=== PATIENT | female | born 1990 | race Caucasian/White ===

== ENCOUNTER 2019-03-27 00:29 | Observation (INO) ==
[2019-03-27] MEDS ORDERED: Acetaminophen 325 MG TABLET PO ONE (01:24)
--- NOTE | 2019-03-27 01:38 | Emergency Department Note ---
Disposition Clinical Impression: IV drug abuse Septic pulmonary embolism Qualifiers: Chronicity: acute Acute cor pulmonale presence: without acute cor pulmonale Qualified Code(s): I26.90 - Septic pulmonary embolism without acute cor pulmonale Disposition: Admitted As Inpatient Condition: Fair Referrals: NONE,PCP [Primary Care Provider] - Forms: ED Satisfaction Letter, Work/School Release Time of Disposition: 02:30 SOB HPI - General Chief Complaint: ED General Medical Stated Complaint: "Feel short of breath", being treated for UTI Time Seen by Provider: 03/27/19 00:56 Source: patient Mode of arrival: private vehicle Limitations: no limitations Nursing Notes Reviewed: Yes Vital Signs Reviewed: Yes - History of Present Illness Patient presents to the ED complaining of shortness of breath. Symptoms going on for 3-4 days. She has also been running a fever for 3-4 days. She denies any cough. She does report rhinorrhea. No sneezing or nasal congestion. She has had a sore throat. No abdominal pain, nausea, vomiting or diarrhea. She has been constipated and does not remember the last time she had a bowel movement. States she went to urgent care 2 days ago for fever, chest pain and tingling with urination. She states she was diagnosed with a "really bad" UTI. She had a shot of antibiotics at urgent care and then prescribed oral antibiotics. She took one dose of her oral antibiotic, cefdinir, yesterday. She states the tingling with urination she had is now gone. Her chest discomfort is worse with coughing and taking a deep breath. She also reports some swelling of her right hand. No rash or skin lesions. She has been taking Tylenol for her fever and the prescribed antibiotic. 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 She denies any other drug use. Denies any alcohol. She is a smoker. No recent travel or sick contacts. No chronic medical problems a routine medications. She does not have a primary care doctor. States she has been checking her oxygen saturation at home because a family member had a pulse ox meter and it has been in the high 90s. - Related Data Allergies Allergy/AdvReac Type Severity Reaction Status Date / Time Sulfa (Sulfonamide Allergy Hives Verified 03/27/19 00:59 Antibiotics) sulfamethoxazole Allergy Hives Verified 03/27/19 00:59 [From Bactrim] trimethoprim [From Bactrim] Allergy Hives Verified 03/27/19 00:59 Constitutional: Reports: fever. Denies: chills, weakness, weight change Eyes: Denies: eye pain, eye discharge, vision change ENT ED: Reports: throat pain. Denies: ear pain, dental pain, hearing loss, epis taxis, congestion, dysphagia Cardiovascular: Reports: chest pain. Denies: palpitations, dyspnea on exertion, edema, syncope Respiratory: Reports: dyspnea. Denies: wheezes, hemoptysis, stridor Gastrointestinal: Reports: constipation. Denies: abdominal pain, nausea, vomiting, diarrhea, hematemesis, melena, hematochezia Genitourinary: Denies: dysuria, frequency, hematuria, discharge Musculoskeletal: Denies: back pain, neck pain, arthralgia, myalgia Integumentary: Denies: rash, abrasion, lesions Neurological: Denies: headache, weakness, numbness, paresthesias, confusion, abnormal gait, vertigo Psychiatric: Denies: anxiety, depression, suicidal thoughts, homicidal thoughts, auditory hallucinations, visual hallucinations Endocrine: Denies: fatigue Hematological/Lymphatic: Denies: easy bleeding, easy bruising Allergic/Immunologic: Denies: facial swelling, urticaria Past Medical History - Past Medical History Medical history: Reports: no medical history - Social History Smoking Status: Current every day smoker Smokeless Tobacco Status: No Alcohol use: Reports: none Drug use: Reports: IV Drug Use Physical Exam - General Limitations: no limitations General appearance: alert, in no apparent distress - Head Head exam: atraumatic, normocephalic, normal inspection - Eye Eye exam: Present: normal appearance, PERRL, EOMI - ENT ENT exam: normal exam, normal oropharynx, mucous membranes moist - Neck Neck exam: Present: normal inspection, full ROM, trachea midline - Chest Chest inspection: Present: normal inspection, symmetric chest wall rise - Respiratory Respiratory exam: Present: normal lung sounds bilaterally - Cardiovascular Cardiovascular exam: Present: regular rate, normal rhythm, normal heart sounds - Abdominal Exam Abdominal exam: Present: soft, Non-Tender. Absent: tenderness, distention, guarding, rebound, rigidity - Extremities Exam Extremities exam: Present: normal inspection, full ROM. Absent: tenderness, pedal edema - Back Exam Back exam: Present: normal inspection, full ROM. Absent: tenderness - Neurological Exam Neurological exam: Present: alert, oriented X3 - Psychiatric Psychiatric exam: Present: normal affect, normal mood - Skin Skin exam: Present: warm, dry, intact, normal color Course Course Narrative: Presents to the ED with 4 days of shortness of breath, pleuritic chest pain, fever and sore throat. She is on antibiotics the past 2 days for UTI without i mprovement raise a concern for an alternative source of infection. Given her chest discomfort and shortness of breath and drug abuse concern is for pulmonary septic emboli versus endocarditis other pulmonary process. We will give Tylenol for her fever and obtain chest x-ray and lab work. - Reevaluation(s) Reevaluation #1: Laboratory studies show a mild leukocytosis with left shift and mild anemia. BMP is unremarkable. Lactic acid is normal. Urinalysis shows some trace leukocyte esterase as well as red blood cells and white blood cells but is also contaminated. Urine drug screen is positive for opiates, oxycodone, benzodiazepines and amphetamines. Chest x-ray shows multifocal opacities with cavitation concerning for septic emboli disease which is consistent with her IV drug abuse. Discussed with patient all test results and need for admission for IV antibiotics and she is in agreement. I spoke to the hospitalist on-call, Dr. Ma who agreed to accept the patient. Time: 02:31 Vital Signs Temperature 100.7 F H 03/27/19 00:32 Pulse Rate 116 03/27/19 00:32 Respiratory Rate 18 03/27/19 00:32 Blood Pressure 130/63 03/27/19 00:32 O2 Sat by Pulse Oximetry 98 03/27/19 00:32 Temperature 100.7 F H 03/27/19 00:32 Pulse Rate 116 03/27/19 00:32 Respiratory Rate 18 03/27/19 00:32 Blood Pressure 130/63 03/27/19 00:32 O2 Sat by Pulse Oximetry 98 03/27/19 00:32 Oxygen Delivery Oxygen Delivery Room Air Shortness of Breath/Dyspnea - Medical Records Medical records reviewed: Yes I reviewed the patient's medical records. - Lab Data Lab results reviewed: Yes I reviewed the patient's lab results. Result diagrams: 03/27/19 01:44 03/27/19 01:44 Lab Results 03/27/19 03/27/19 03/27/19 Range/Units 01:27 01:27 01:44 WBC 13.2 H (4.3-11.1) K/mcL RBC 3.92 (3.82-4.97) M/mcL Hgb 9.6 L (11.5-15.4) g/dL Hct 29.4 L (35.3-44.9) % MCV 75.0 L (83.0-100.0) fL MCH 24.5 L (28.0-33.3) pg MCHC 32.7 (31.6-35.5) g/dL RDW 14.6 H (11.5-14.5) % Plt Count 185 (140-400) K/mcL MPV 11.5 (9.4-12.4) fL Immature Gran % 1.2 (0-4) % Seg Neutrophils % 75.9 % Lymphocytes % 12.8 % Monocytes % 9.3 % Eosinophils % 0.6 % Basophils % 0.2 % Neutrophils # 10.0 H (1.6-8.9) K/mcL Lymphocytes # 1.7 (0.6-4.6) K/mcL Monocytes # 1.2 (0.0-1.3) K/mcL Eosinophils # 0.1 (0.0-0.6) K/mcL Basophils # 0.0 (0.0-0.2) K/mcL Sodium (136-145) mEq/L Potassium (3.5-5.1) mEq/L Chloride (98-107) mEq/L Carbon Dioxide (23-29) mEq/L BUN (6-20) mg/dL Creatinine (0.60-1.20) mg/dL Est GFR ( Amer) (> 60) Est GFR (Non-Af Amer) (> 60) BUN/Creatinine Ratio (6-26) Glucose (70-105) mg/dL Calculated Osmolality (280-300) Lactic Acid (0.5-2.2) mmol/L Calcium (8.6-10.3) mg/dL Urine Color Yellow (Yellow) Urine Clarity Slightly Cloudy A (Clear) Urine pH 6.5 (5.0-8.0) pH Units Ur Specific [place] 1.015 (1.010-1.025) Urine Protein 30 H (Neg-Trace) mg/dL Urine Glucose (UA) Normal (Normal) mg/dL Urine Ketones Negative (Negative) mg/dL Urine Blood Moderate H (Negative) Urine Nitrite Negative (Negative) Urine Bilirubin Negative (Negative) Urine Urobilinogen >=8.0 H (Normal) mg/dL Ur Leukocyte Esterase Trace H (Negative) Urine Microscopic RBC 5-15 H (0-3) per hpf Urine Microscopic WBC 5-15 H (0-3) per hpf Ur Squamous Epith Cells Many H (None-Few) per lpf Urine Bacteria Few (None-Few) per hpf Ur Culture Indicated? YES A (NO) Urine Opiates Screen Positive H (Zpgrmt=013) ng/mL Ur Buprenorphine Scrn Negative (Cutoff=5) ng/mL Ur Oxycodone Screen Positive H (Cutoff= 100) ng/mL Ur Barbiturates Screen Negative (Xhpngi=883) ng/mL Ur Phencyclidine Scrn Negative (Cutoff=25) ng/mL Ur Amphetamines Screen Positive H (Oisfxd=2895) ng/mL U Benzodiazepines Scrn Positive H (Yqterl=222) ng/mL Urine Cocaine Screen Negative (Cutoff= 300) ng/mL U Marijuana (THC) Screen Negative (Cutoff = 50) ng/mL Ur Drug Screen Interp See Below 03/27/19 03/27/19 Range/Units 01:44 01:44 WBC (4.3-11.1) K/mcL RBC (3.82-4.97) M/mcL Hgb (11.5-15.4) g/dL Hct (35.3-44.9) % MCV (83.0-100.0) fL MCH (28.0-33.3) pg MCHC (31.6-35.5) g/dL RDW (11.5-14.5) % Plt Count (140-400) K/mcL MPV (9.4-12.4) fL Immature Gran % (0-4) % Seg Neutrophils % % Lymphocytes % % Monocytes % % Eosinophils % % Basophils % % Neutrophils # (1.6-8.9) K/mcL Lymphocytes # (0.6-4.6) K/mcL Monocytes # (0.0-1.3) K/mcL Eosinophils # (0.0-0.6) K/mcL Basophils # (0.0-0.2) K/mcL Sodium 133 L (136-145) mEq/L Potassium 3.4 L (3.5-5.1) mEq/L Chloride 99 (98-107) mEq/L Carbon Dioxide 24 (23-29) mEq/L BUN 18 (6-20) mg/dL Creatinine 0.77 (0.60-1.20) mg/dL Est GFR ( Amer) > 60 (> 60) Est GFR (Non-Af Amer) > 60 (> 60) BUN/Creatinine Ratio 23 (6-26) Glucose 116 H (70-105) mg/dL Calculated Osmolality 279 L (280-300) Lactic Acid 0.6 (0.5-2.2) mmol/L Calcium 8.2 L (8.6-10.3) mg/dL Urine Color (Yellow) Urine Clarity (Clear) Urine pH (5.0-8.0) pH Units Ur Specific [place] (1.010-1.025) Urine Protein (Neg-Trace) mg/dL Urine Glucose (UA) (Normal) mg/dL Urine Ketones (Negative) mg/dL Urine Blood (Negative) Urine Nitrite (Negative) Urine Bilirubin (Negative) Urine Urobilinogen (Normal) mg/dL Ur Leukocyte Esterase (Negative) Urine Microscopic RBC (0-3) per hpf Urine Microscopic WBC (0-3) per hpf Ur Squamous Epith Cells (None-Few) per lpf Urine Bacteria (None-Few) per hpf Ur Culture Indicated? (NO) Urine Opiates Screen (Bmmkkx=475) ng/mL Ur Buprenorphine Scrn (Cutoff=5) ng/mL Ur Oxycodone Screen (Cutoff= 100) ng/mL Ur Barbiturates Screen (Bebrif=990) ng/mL Ur Phencyclidine Scrn (Cutoff=25) ng/mL Ur Amphetamines Screen (Adhfvm=1206) ng/mL U Benzodiazepines Scrn (Mrxgsh=410) ng/mL Urine Cocaine Screen (Cutoff= 300) ng/mL U Marijuana (THC) Screen (Cutoff = 50) ng/mL Ur Drug Screen Interp - Radiology Data Radiology results reviewed: Yes I reviewed the patient's radiology results. Impressions Chest X-Ray 03/27/19 01:23 IMPRESSION: Multifocal airspace disease with cavitation, most suspicious for septic embolic disease given history of intravenous drug use. D/ / Andrew Parsons / Andrew Parsons Interpreting Provider: Andrew Parsons
[2019-03-27 02:06] LABS: Basophils % 0.2 %; Eosinophils # 0.1 K/mcL (0.0-0.6); Eosinophils % 0.6 %; Hematocrit 29.4 % (35.3-44.9); Hemoglobin 9.6 g/dL (11.5-15.4); Immature Granulocytes % 1.2 % (0-4); Lymphocytes # 1.7 K/mcL (0.6-4.6); Lymphocytes % 12.8 %; Mean Corpuscular HGB Conc 32.7 g/dL (31.6-35.5); Mean Corpuscular Hemoglobin 24.5 pg (28.0-33.3); Mean Platelet Volume 11.5 fL (9.4-12.4); Monocytes # 1.2 K/mcL (0.0-1.3); Monocytes % 9.3 %; Platelet Count 185 K/mcL (140-400); Red Blood Count 3.92 M/mcL (3.82-4.97); Red Cell Distribution Width 14.6 % (11.5-14.5); Segmented Neutrophils % 75.9 %; White Blood Count 13.2 K/mcL (4.3-11.1)
[2019-03-27 02:11] LABS: Bilirubin,Urine Negative (Negative); Blood,Urine Moderate (Negative); Clarity,Urine Slightly Cloudy (Clear); Color,Urine Yellow (Yellow); Glucose,Urine (UA) Normal (Normal); Ketones,Urine Negative (Negative); Leukocyte Esterase,Urine Trace (Negative); Nitrite,Urine Negative (Negative); PH,Urine 6.5 pH Units (5.0-8.0); Protein,Urine 30 mg/dL (Neg-Trace); Specific Gravity,Urine 1.015 (1.010-1.025); Urobilinogen,Urine >=8.0 mg/dL (Normal)
[2019-03-27 02:18] LABS: BUN/Creatinine Ratio 23 (6-26); Blood Urea Nitrogen 18 mg/dL (6-20); Calcium 8.2 mg/dL (8.6-10.3); Carbon Dioxide 24 mEq/L (23-29); Chloride 99 mEq/L (98-107); Glucose 116 mg/dL (70-105); Osmolality,Calculated 279 (280-300); Potassium 3.4 mEq/L (3.5-5.1); Sodium 133 mEq/L (136-145); eGFR For African Americans > 60 (> 60); eGFR For Non-African Americans > 60 (> 60)
[2019-03-27 02:19] LABS: Amphetamine Screen,Urine Positive ng/mL (Cutoff=1000); Barbiturate Screen,Urine Negative ng/mL (Cutoff=200); Benzodiazepines Screen,Urine Positive ng/mL (Cutoff=200); Cannabinoid Screen,Urine Negative ng/mL (Cutoff = 50); Cocaine Screen,Urine Negative ng/mL (Cutoff= 300); Opiate Screen,Urine Positive ng/mL (Cutoff=300); Phencyclidine Screen,Urine Negative ng/mL (Cutoff=25)
[2019-03-27 02:21] LABS: Bacteria,Urine Few per hpf (None-Few); Squamous Epithelial Cell,Urine Many per lpf (None-Few)
[2019-03-27] MEDS ORDERED: Naloxone 0.4 MG/ML INJ IVP PRN ×2 (02:34→03:20)
--- NOTE | 2019-03-27 12:06 | Internal Med History&Physical ---
Date of Encounter: 03/27/19 Time of Encounter: 11:25 Assessment and Plan (1) Septic pulmonary embolism Current visit: Yes Status: Acute She has been started on IV vancomycin. Lactobacillus will be added. Chest CT and echocardiogram will be done to further evaluate. Qualifiers: Chronicity: acute Acute cor pulmonale presence: without acute cor pulmonale Qualified Code(s): I26.90 - Septic pulmonary embolism without acute cor pulmonale (2) Tobacco abuse Current visit: Yes Status: Acute NicoDerm patch will be given. (3) Microcytic anemia Current visit: Yes Status: Acute Suspect iron deficiency. Anemia testing will be ordered. (4) Hypokalemia Current visit: Yes Status: Acute Etiology not obvious. Supplemental potassium will be given. (5) Hepatitis C Current visit: Yes Status: Chronic LFTs and PT/INR will be ordered. Qualifiers: Viral hepatitis chronicity: chronic Hepatic coma status: without hepatic coma Qualified Code(s): B18.2 - Chronic viral hepatitis C (6) IV drug abuse Current visit: Yes Status: Acute Antianxiety medication will be given as needed to lessen withdrawal symptoms. Internal Medicine - H&P: HPI Chief complaint: Dyspnea Admitted From: Emergency Dept Plans for Post Hospital Care: Home History of present illness: Ms. Noyola is a 29 year old female who came to emergency room complaining of dyspnea onset 3 days previously. She reports chest pain on inspiration. She states she had fever up to 103 at home. She denies cough vomiting or diarrhea. She was seen at a local urgent care and reports receiving IM antibiotic injection and prescribed Cefdinir for UTI. Dyspnea did not improve over the next 24 hours so she came to emergency room. She was evaluated and was found to have leukocytosis, hypokalemia, and multifocal airspace disease with cavitary lesions suspicious for septic embolisms. She was admitted to [facility] floor for ongoing care needs. She admits to regular IV heroin use. Respiratory history is significant for having smoked since age 16 up to 2 packs per day. She denies documented lung disease otherwise. Past Med Surg Social Fam HX - Past Medical History Medical history: other Additional medical history: "kidney problems" - Past Surgical History Additional surgical history: Tubal ligation - Social History Smoking Status: Current every day smoker Packs per day: 1 Smokeless Tobacco Status: No Alcohol use: none Drug use: IV Drug Use Internal Medicine - H&P: Meds Allergy/AdvReac Type Severity Reaction Status Date / Time Sulfa (Sulfonamide Allergy Hives Verified 03/27/19 00:59 Antibiotics) sulfamethoxazole Allergy Hives Verified 03/27/19 00:59 [From Bactrim] trimethoprim [From Bactrim] Allergy Hives Verified 03/27/19 00:59 All Systems PM: A 10-system review of systems was performed and is negative for pertinent findings except as documented above in the HPI. Review of systems: Gen.: She states her weight has been stable for several months Cardiovascular: She denies hypertension SC heart failure angina DVT or pulmonary embolus Respiratory: As per history of present illness GI: She states she was diagnosed with hepatitis C in 2015. She denies hepatitis B. She denies other disorders of her liver gallbladder or exocrine pancreas : She has had UTIs in the past. She denies other kidney or bladder disorders. Neurologic: She denies large distribution strokes or seizures. Endocrine: She denies diabetes thyroid disease or hyperlipidemia Hematology/oncology: She reports she has had iron deficiency anemia in the past. She has not received Rx. She denies other blood disorders or internal malignancies. Psychiatric: She denies anxiety depression or other mental health issues [place] skeletal: She denies arthritis gout or other bone joint or muscle di sorders. - Constitutional Vitals: Temp Pulse Resp BP Pulse Ox 98.2 F 90 24 109/69 98 03/27/19 09:26 03/27/19 09:26 03/27/19 09:26 03/27/19 09:26 03/27/19 09:26 Exam: Gen.: She is a well-developed well-nourished female lying in bed who appears in no severe distress HEENT: Head is atraumatic and normocephalic. Eyes: EOMI. There is no scleral icterus. Mouth: Mucosa is moist. Neck: Supple and nontender. There is no thyromegaly or adenopathy noted. Heart: Regular without murmurs gallops or ectopics Lungs: No wheezes, egophony, or crackles are heard. Abdomen: Soft and nontender. No masses or guarding are noted. Extremities: There is no cyanosis edema or clubbing noted. Dorsalis pedis and posterior tibial pulses are 1-2 over 2 bilaterally. Neurologic: Mental status: She is talkative and a good historian. Cranial nerves: Smile is symmetric. Forehead wrinkles bilaterally. Tongue protrudes midline. EOMI. Motor: There is no pronator drift. Cerebellar: Finger to nose is intact bilaterally. Skin: She has multiple tattoos. Skin is warm and dry. Internal Med - H&P Results - Labs CBC & Chem 7: 03/27/19 01:44 03/27/19 01:44 Labs: Short CBC 03/27/19 Range/Units 01:44 WBC 13.2 H (4.3-11.1) K/mcL Hgb 9.6 L (11.5-15.4) g/dL Hct 29.4 L (35.3-44.9) % Plt Count 185 (140-400) K/mcL Neutrophils # 10.0 H (1.6-8.9) K/mcL BMP 03/27/19 01:44 Sodium 133 L Potassium 3.4 L Chloride 99 Carbon Dioxide 24 BUN 18 Creatinine 0.77 Glucose 116 H Calcium 8.2 L Urine 03/27/19 Range/Units 01:27 Urine Color Yellow (Yellow) Urine Clarity Slightly Cloudy A (Clear) Urine pH 6.5 (5.0-8.0) pH Units Ur Specific [place] 1.015 (1.010-1.025) Urine Protein 30 H (Neg-Trace) mg/dL Urine Glucose (UA) Normal (Normal) mg/dL - Impressions ITS Impressions Chest X-Ray 03/27/19 01:23 IMPRESSION: Multifocal airspace disease with cavitation, most suspicious for septic embolic disease given history of intravenous drug use. D/ / Andrew Parsons / Andrew Parsons Interpreting Provider: Andrew Parsons - VTE Reasons for not Prescribing Prophylaxis: Treatment not Indicated - Low risk for VTE
[2019-03-27] MEDS: Nicotine 21 MG PATCH.TD24 TD SCH (13:15)
[2019-03-27] MEDS: ALPRAZolam 0.25 MG TABLET PO PRN (16:53)
[2019-03-27 18:12] LABS: % Iron Saturation 7 % (15-50); Iron 18 mcg/dL (50-170); Transferrin 177 mg/dL (203-362)
[2019-03-27 18:30] LABS: Ferritin 110 ng/mL (10-120)
[2019-03-27] MEDS: Lactobacillus 1 EACH CAP.SPRINK PO SCH (20:01)
[2019-03-28 05:36] LABS: Basophils % 0.3 %; Eosinophils # 0.1 K/mcL (0.0-0.6); Eosinophils % 0.7 %; Hematocrit 28.1 % (35.3-44.9); Hemoglobin 8.9 g/dL (11.5-15.4); Immature Granulocytes % 1.7 % (0-4); Lymphocytes % 22.7 %; Mean Corpuscular HGB Conc 31.7 g/dL (31.6-35.5); Mean Corpuscular Hemoglobin 24.2 pg (28.0-33.3); Mean Corpuscular Volume 76.4 fL (83.0-100.0); Mean Platelet Volume 11.3 fL (9.4-12.4); Monocytes # 0.8 K/mcL (0.0-1.3); Neutrophils # 5.8 K/mcL (1.6-8.9); Platelet Count 194 K/mcL (140-400); Red Blood Count 3.68 M/mcL (3.82-4.97); Red Cell Distribution Width 14.5 % (11.5-14.5); Segmented Neutrophils % 65.6 %; White Blood Count 8.8 K/mcL (4.3-11.1)
[2019-03-28 05:46] LABS: INR 1.2; Prothrombin Time 13.5 Seconds (9.4-12.1)
[2019-03-28 05:58] LABS: Alanine Aminotransferase 8 Units/L (7-52); Albumin 2.6 g/dL (3.5-5.7); Albumin/Globulin Ratio 0.6 (1.1-2.2); Alkaline Phosphatase 103 Units/L (34-104); Aspartate Amino Transferase 10 Units/L (13-39); BUN/Creatinine Ratio 16 (6-26); Bilirubin,Total 0.2 mg/dL (0.3-1.0); Blood Urea Nitrogen 10 mg/dL (6-20); Calcium 8.1 mg/dL (8.6-10.3); Carbon Dioxide 26 mEq/L (23-29); Chloride 105 mEq/L (98-107); Globulin 4.3 g/dL (2.4-3.5); Glucose 91 mg/dL (70-105); Osmolality,Calculated 285 (280-300); Potassium 3.7 mEq/L (3.5-5.1); Sodium 138 mEq/L (136-145); Total Protein 6.9 g/dL (6.4-8.9); eGFR For African Americans > 60 (> 60); eGFR For Non-African Americans > 60 (> 60)
[2019-03-28] MEDS: ALPRAZolam 0.25 MG TABLET PO PRN (06:43)
[2019-03-28] MEDS: Lactobacillus 1 EACH CAP.SPRINK PO SCH (08:55)
[2019-03-28] MEDS: Nicotine 21 MG PATCH.TD24 TD SCH (08:55)
[2019-03-28] MEDS ORDERED: Ondansetron 4 MG/2 ML VIAL IVP PRN (09:36)
--- NOTE | 2019-03-28 12:13 | Discharge Summary ---
Orders not resulted at time of discharge: Pending orders 03/27/19 01:27 Culture,Urine [RM] Stat 03/27/19 01:44 Culture,Blood [BC] Stat 03/28/19 09:20 GI Panel,Stool [MOLMIC] Routine Date of Encounter: 03/28/19 Time of Encounter: 12:05 - Discharge Diagnosis (1) Septic pulmonary embolism Priority: Primary Status: Acute Qualifiers: Chronicity: acute Acute cor pulmonale presence: without acute cor pulmonale Qualified Code(s): I26.90 - Septic pulmonary embolism without acute cor pulmonale (2) Tricuspid valve vegetation Priority: Secondary Status: Acute (3) Tricuspid regurgitation Priority: Secondary Status: Acute Qualifiers: Cardiac valve disease etiology: nonrheumatic Qualified Code(s): I36.1 - Nonrheumatic tricuspid (valve) insufficiency (4) Microcytic anemia Priority: Secondary Status: Acute (5) Hypokalemia Priority: Secondary Status: Resolved (6) Hepatitis C Priority: Secondary Status: Chronic Qualifiers: Viral hepatitis chronicity: chronic Hepatic coma status: without hepatic coma Qualified Code(s): B18.2 - Chronic viral hepatitis C (7) IV drug abuse Priority: Secondary Status: Chronic (8) Tobacco abuse Priority: Secondary Status: Chronic Hospital course: Ms. Noyola is a 29 year old female who came to emergency room complaining of dyspnea onset 3 days previously. She reports chest pain on inspiration. She states she had fever up to 103 at home. She denies cough vomiting or diarrhea. She was seen at a local urgent care and reports receiving IM antibiotic injection and prescribed Cefdinir for UTI. Dyspnea did not improve over the next 24 hours so she came to emergency room. She was evaluated and was found to have leukocytosis, hypokalemia, and multifocal airspace disease with cavitary lesions suspicious for septic embolisms. She was admitted to [facility] floor for ongoing care needs. Initial orders were written by the emergency room physician. I saw her on March 27 and performed the history and physical. She was started on IV vancomycin in emergency room with lactobacillus. Chest CT showed extensive bilateral pulmonary nodules, many of which showed cavitation, most consistent with septic emboli. Splenomegaly was noted also. Echocardiogram showed LVEF of 65%. There was a 6 x 10 mm mobile mass attached to the tricuspid valve associated with flail leaflet and moderate to severe tricuspid regurgitation. I discussed the chest CT and echocardiogram findings with her on March 28 and told her she needed to be seen by infectious disease and cardiology for ongoing care planning. She agreed to be transferred to [facility]. - Time Spent with Patient Total time spent providing and/or coordinating discharge services: - Discharge Medications Allergies/Adverse Reactions: Allergy/AdvReac Type Severity Reaction Status Date / Time Sulfa (Sulfonamide Allergy Hives Verified 03/27/19 00:59 Antibiotics) sulfamethoxazole Allergy Hives Verified 03/27/19 00:59 [From Bactrim] trimethoprim [From Bactrim] Allergy Hives Verified 03/27/19 00:59 Date of admission: 03/27/19 02:43 Primary care physician: PCP NONE - Constitutional Vitals: Temp Pulse Resp BP Pulse Ox 98.4 F 82 18 126/83 100 03/28/19 06:45 03/28/19 06:45 03/28/19 06:45 03/28/19 06:45 03/28/19 06:45 - Patient Status Disposition: Transfer Other Condition: Fair - Discharge Instructions - VTE Reasons for not Prescribing Prophylaxis: Treatment not Indicated - Low risk for VTE
[2019-03-28 14:20] VITALS: BP 122/78
[2019-03-28] MEDS ORDERED: Aminoglycoside Consult 1 EACH MC ONE (15:19)
[2019-03-28 19:03] LABS: Campylobacter by PCR Not detected (Not detect)
[2019-03-28 19:05] LABS: Adenovirus F 40/41 PCR Not detected (Not detect); Astrovirus PCR Not detected (Not detect); C.difficile Toxin A/B Gene PCR DETECTED (Not detect); Cryptosporidium by PCR Not detected (Not detect); Cyclospora cayetanensis PCR Not detected (Not detect); E. coli O157 by PCR Not detected (Not detect); Entamoeba histolytica PCR Not detected (Not detect); Enteroaggregative E.coli(EAEC) Not detected (Not detect); Enteropathogenic E.coli(EPEC) Not detected (Not detect); Enterotoxigenic E.coli (ETEC) Not detected (Not detect); Giardia lamblia PCR Not detected (Not detect); Norovirus GI/GII PCR Not detected (Not detect); Plesiomonas shigelloides PCR Not detected (Not detect); Rotavirus A PCR Not detected (Not detect); Salmonella PCR Not detected (Not detect); Sapovirus PCR Not detected (Not detect); Shig/EnteroinvasiveE coli EIEC Not detected (Not detect); Shigalike tox-prod E coli STEC Not detected (Not detect); Vibrio PCR Not detected (Not detect); Vibrio cholerae PCR Not detected (Not detect); Yersinia enterocolitica PCR Not detected (Not detect)
== END 2019-03-28 15:20 | disposition other institution (70) ==
LOC: INPPIK 00:29 → EMEROOPIK 00:29 → INPPIK 03:00
PROVIDERS: ADMIT Internal Medicine; ATTEND Internal Medicine